=== PATIENT | male | born 1955 | race Two or more races ===

== ENCOUNTER 2018-07-14 11:50 | Emergency (ER) | payer OTHER ==
[2018-07-14] MEDS ORDERED: Sodium Phos / Potassium Phos 1.25 GM PACK PO ONE ×2 (11:51→12:40)
[2018-07-14] MEDS ORDERED: Metoprolol tartrate 1 mg/ml 5mL Amp IV STA (11:53)
[2018-07-14] MEDS ORDERED: Aspirin 81mg Chewable Tab PO STA (12:02)
--- NOTE | 2018-07-14 12:05 | ED Physician Chart ---
ED Chief Complaint/HPI - Patient Information Date Seen:: 07/07/18 Time Seen:: 12:00 Chief Complaint:: neck tightness & sob History of Present Illness:: neck tightness & sob in a man with no cardiac history who denies chest pain. according to his roommate, he drinks too much alcohol he had 2 cups of coffee and a muffin before this occurred. Allergies:: Allergies Allergy/AdvReac Type Severity Reaction Status Date / Time No Known Allergies Allergy Verified 07/14/18 12:00 ED Review of Systems - Review of Systems General/Constitutional: No fever, No chills, No weight loss, No weakness, No diaphoresis, No edema, No loss of appetite Skin: No skin lesions, No rash, No bruising Head: No headache, No light-headedness Eyes: No loss of vision, No pain, No diplopia ENT: No earache, No nasal drainage, No sore throat, No tinnitus Neck: No swelling, No thyromegaly, No stiffness, No mass noted, Other (neck tightness) Cardio Vascular: No chest pain, No palpitations, No PND, No orthopnea, No edema Pulmonary: SOB, No cough, No sputum, No wheezing GI: No nausea, No vomiting, No diarrhea, No pain, No melena, No hematochezia, No constipation, No hematemesis G/U: No dysuria, No frequency, No hematuria Musculoskeletal: No bone or joint pain, No back pain, No muscle pain Endocrine: No polyuria, No polydipsia Psychiatric: No prior psych history, No depression, No anxiety, No suicidal ideation Hematopoietic: No bruising, No lymphadenopathy Allergic/Immuno: No urticaria, No angioedema Neurological: No syncope, No focal symptoms, No weakness, No paresthesia, No headache, No seizure, No dizziness, No confusion, No vertigo ED Past Medical History - Past Medical History Obtainable: Yes Past Medical History: No significant medical hx Social History: Alcohol Family Medical History - Family Member Mother History Unknown: Yes ED Physical Exam - Physical Examination General/Constitutional: Awake, Well-developed, well-nourished, Alert, GCS 15, Non-toxic appearing, Ambulatory Other Gen/Cons comments:: anxious. Head: Atraumatic Eyes: Lids, conjuctiva normal, PERRL, EOMI Skin: Nl inspection, No rash, No skin lesions, No ecchymosis, Well hydrated, No lymphadenopathy ENMT: External ears, nose nl Neck: Nontender, Full ROM w/o pain, No JVD, No nuchal rigidity, No bruit, No mass, No stridor Respiratory: Nl effort/Exclusion, Clear to Auscultation, No Wheeze/Rhonchi/Rales Cardio Vascular: RRR, No murmur, gallop, rubs, NL S1 S2 GI: No tenderness/rebounding/guarding, No organomegaly, No hernia, Normal BS's, Nondistended, No mass/bruits, No McBurney tenderness : No CVA tenderness Extremities: No tenderness or effusion, Full ROM, normal strength in all extremities, No edema, Normal digits & nails Neuro/Psych: Alert/oriented, Normal sensory exam, Normal motor strength, Judgement/insight normal, Mood normal, Normal gait, No focal deficits Misc: Normal back, No paraspinal tenderness ED Assessment - Assessment General Assessment: EKG from 11:52:56 a.m.: sinus tachycardia, flipped t wave in V1, nonspecific ST T wave changes. CXR: NAD. patient denies neck tightness and cp while in the ER. appears anxious. given aspirin 162 mg. will repeat troponin. ED Septic Shock - . Is Septic Shock (SBP<90, OR Lactate>4 mmol\L) present?: No ED Reassessment (Disposition) - Reassessment Reassessment Condition:: Improved - Diagnosis Diagnosis:: Gastroesophageal reflux disease Alcohol use - Aftercare/Follow up Instructions Aftercare/Follow-Up Instructions:: Refer to Discharge Instructions - Patient Disposition Discharge/Transfer:: Home Condition at Disposition:: Stable, Improved
[2018-07-14] MEDS ORDERED: Aspirin 81mg Chewable Tab ONE (12:06)
[2018-07-14 12:14] LABS: % BASOPHILS 1.8 % (0.0-2.0); % EOSINOPHILS 0.8 % (0.0-5.0); % LYMPHOCYTES 27.3 % (20.0-50.0); % MONOCYTES 5.4 % (2.0-10.0); % NEUTROPHILS 64.7 % (40.0-80.0); BASOPHILE ABSOLUTE 0.1 Th/cumm (0-0.2); EOSINOPHILE ABSOLUTE 0.1 Th/cmm (0.1-0.4); HEMATOCRIT 42.7 % (41.0-60); HEMOGLOBIN 13.8 gm/dL (12-16); MEAN CELL VOLUME 87.4 fl (80-99); MEAN CORPUSCULAR HEMOGLOBIN 28.3 pg (26.0-30.0); MEAN CORPUSCULAR HGB CONC 32.4 pg (28.0-36.0); MEAN PLATELET VOLUME 7.7 fl; MONOCYTE ABSOLUTE 0.4 Th/cmm (0.3-1.0); NEUTROPHILE ABSOLUTE 4.8 Th/cmm (1.8-8.0); PLATELET COUNT 310 Th/cmm (150-400); RED BLOOD COUNT 4.88 Mil/cmm (4.30-5.70); RED CELL DISTRIBUTION WIDTH 11.9 % (11.5-20.0); WHITE BLOOD COUNT 7.4 Th/cmm (4.8-10.8)
[2018-07-14 12:30] LABS: ALB/GLOB RATIO 1.6 (1.0-1.8); ALBUMIN 4.1 gm/dL (4.2-5.5); ALKALINE PHOSPHATASE 74 U/L (34-104); ANION GAP 16.4 (7.0-16.0); BILIRUBIN,TOTAL 0.8 mg/dL (0.3-1.0); BUN - UREA NITROGEN 15 mg/dL (7-25); CALCIUM SERUM 9.3 mg/dL (8.6-10.3); CHLORIDE 102 mEq/L (98-107); CREATININE - SERUM 0.9 mg/dL (0.7-1.3); GFR AFRICAN-AMERICAN > 60.0 ml/min (>90); GFR NON AFRICAN-AMERICAN > 60.0 ml/min; GLUCOSE 207 mg/dL (70-105); MAGNESIUM 1.6 mg/dL (1.9-2.7); PHOSPHOROUS 1.9 mg/dL (2.5-5.0); POTASSIUM SERUM 3.4 mEq/L (3.5-5.1); SGOT 24 U/L (13-39); SGPT/ALT 23 U/L (7-52); SODIUM SERUM 138 mEq/L (136-145); TOTAL PROTEIN,SERUM 6.7 gm/dL (6.0-8.3)
[2018-07-14 12:40] LABS: DDIMER QUANT < 100 ng/mL (100-400)
[2018-07-14] MEDS ORDERED: Maalox 30 mL Cup PO ONE (12:40)
[2018-07-14] MEDS ORDERED: Potassium Chloride 20 mEq ER Tab PO ONE (12:40)
--- NOTE | 2018-07-14 12:45 | Diagnostic Imaging Report ---
Portable chest x-ray History: Pain, shortness of breath Allowing for portable technique the heart size is normal. No focal pulmonary parenchymal processes. No hilar or mediastinal abnormalities. Impression: No acute abnormalities.
[2018-07-14 12:52] LABS: URINE SOURCE CLEAN C
[2018-07-14 12:57] LABS: URINE BILIRUBIN SMALL (NEGATIVE); URINE BLOOD NEGATIVE (NEGATIVE); URINE GLUCOSE (UA) NEGATIVE (NEGATIVE); URINE KETONE TRACE mg/dL (NEGATIVE); URINE LEUKOCYTE ESTERASE NEGATIVE (NEGATIVE); URINE NITRATE NEGATIVE (NEGATIVE); URINE PROTEIN NEGATIVE (NEGATIVE); URINE UROBILINOGEN 0.2 E.U./dL (0.2 - 1.0)
[2018-07-14 13:17] LABS: URINE CLARITY CLEAR (CLEAR); URINE COLOR DARK YELLOW; URINE EPITHELIAL CELLS RARE /lpf (FEW); URINE MICROSCOPIC INDICATED? YES; URINE RBC 0-2 /hpf (0-5); URINE WBC 0-2 /hpf (0-5)
[2018-07-14 13:18] LABS: AMPHETAMINE URINE NEGATIVE (NEGATIVE); BARBITURATES URINE NEGATIVE (NEGATIVE); BENZODIAZEPINES QUAL URINE NEGATIVE (NEGATIVE); CANNABINOID THC NEGATIVE (NEGATIVE); COCAINE METABOLITE QUAL URINE NEGATIVE (NEGATIVE); METHADONE URINE NEGATIVE (NEGATIVE); METHAMPHETAMINES QUAL URINE NEGATIVE (NEGATIVE); OPIATES (MORPHINE) QUAL. URINE NEGATIVE (NEGATIVE); PHENCYCLIDINE (PCP) URINE NEGATIVE (NEGATIVE); TRICYCLICS (TCA) QUAL. URINE NEGATIVE (NEGATIVE); URINE BACTERIA NONE SEEN /hpf (NONE SEEN)
== END 2018-07-14 16:00 | disposition home or self-care (01) ==
LOC: ER 11:50
DX: K21.9 Gastro-esophageal reflux disease without esophagitis (principal); F41.9 Anxiety disorder, unspecified; Z72.89 Other problems related to lifestyle
CPT/HCPCS: 36415-UA; 71045-TC; 80053-TC; 80307; 81001-TC; 83036-90; 83735-TC; 84100-TC; 84484-TC; 85025-TC; 85379-TC; 93005; Z7502; Z7610